=== PATIENT | female | born 1965 | race Hispanic/Latino ===

== ENCOUNTER → 2020-03-13 | Outpatient (CLI) | payer OTHER | LOC: MAMMO 08:22 | PROVIDERS: ATTEND Obstetrics & Gynecology | DX: Z12.31 Encounter for screening mammogram for malignant neoplasm of breast (principal) | CPT/HCPCS: 77067 ==

== ENCOUNTER → 2020-03-29 | Outpatient (CLI) | payer OTHER | LOC: MAMMO 14:02 | PROVIDERS: ATTEND Obstetrics & Gynecology | DX: R92.8 Other abnormal and inconclusive findings on diagnostic imaging of breast (principal) ==